=== PATIENT | male | born 2000 | race Two or more races ===

== ENCOUNTER 2021-04-21 17:07 | Emergency (ER) | payer OTHER, SELFPAY ==
[2021-04-21 17:08] VITALS: BP 115/67; PULSE 74; RESP 16; TEMP 37.1; O2SAT 99; BMI 19.3
--- NOTE | 2021-04-21 17:27 | HMH.EDGENADL ---
ED Disposition Clinical Impression: Laceration of right lower leg Qualifiers: Encounter type: initial encounter Qualified Code(s): S81.811A - Laceration without foreign body, right lower leg, initial encounter Disposition: Home, Self-Care Condition on Discharge: Good Instructions: DI for Laceration Repair Additional Instructions: Cephalexin as prescribed. Ibuprofen for pain. Additional instructions for LACERATION: Clean the wound daily with soap and water. You may shower. Apply a thin film of antibiotic ointment such as neosporin or triple antibiotic after showering and apply a bandage. Avoid submerging the wound, no swimming. See your primary care physician or return to the [facility] in 10 days for suture removal. The [facility] is open 9AM to 9 PM, 7 days a week. Return if any signs of infection including increasing pain, pus drainage, swelling, redness, red streaks, or fever. Prescriptions: cephALEXin [cephALEXin 500mg capsule*] 500 mg PO Q6H #20 cap Transmission Status: Pending to [id number] Referrals: Provider,Referral, [Primary Care Provider] - - Critical Care Critical Care Time: No Attestation: On , the high probability of a clinically significant, sudden or life threatening deterioration of the following system(s) required my full and direct attention, intervention and personal management. The time I documented below is in addition to time spent performing reported procedures but includes the following listed in this critical care notation. Medical Decision Making - Kayden Inquiry Pt receiving controlled substance: No Vital Signs: 04/21/21 17:08 Temperature 98.7 F Temperature Source Oral Pulse Rate [Left Radial] 74 Respiratory Rate 16 Blood Pressure [Right Arm] 115/67 Blood Pressure Mean [Right Arm] 83 Blood Pressure Source [Right Arm] Automatic Cuff 02 Sat by Pulse Oximetry 99 Oxygen Delivery Method Room Air Orders (Tests/Meds): ED MEDICATIONS Discontinued Medications Generic Name Dose Route Start Last Admin Trade Name Freq PRN Reason Stop Dose Admin Cephalexin HCl 500 mg 04/21/21 17:51 Cephalexin 500mg Capsule PO 04/21/21 17:52 ONCE ONE Ibuprofen 800 mg 04/21/21 17:33 04/21/21 17:43 Ibuprofen 400 Mg Tablet PO 04/21/21 17:34 800 mg ONCE ONE Administration Lidocaine/Epinephrine 10 ml 04/21/21 17:31 04/21/21 17:43 Lidocaine 2% W/Epi 1:100,000 20ml Vial IJ 04/21/21 17:32 1 dose ONCE ONE Administration Tetanus/Reduced Diphtheria/Acell Pertussis 0.5 ml 04/21/21 17:28 04/21/21 17:42 Tet/Diphth/Pert-Adult 0.5ml Syringe IM 04/21/21 17:29 0.5 ml .ONCE ONE Administration General Adult HPI - General Chief complaint: Wound/Laceration Stated complaint: [id number] lac to right leg Time Seen by Provider: 04/21/21 17:27 Mode of Arrival: Wheelchair Limitations: No Limitations Description of Symptoms (Recalled from ER Triage Doc. by RN): laceration on right vences with a tobacco knife about 30 minutes ago - History of Present Illness HPI narrative: Patient does not speak [place]. His employer is present and translates. He accidentally hit himself with a tobacco knife right vences. Employer says he hit himself with the corner of the knife, did not stab himself. He had on lung cancer at that time. He has a laceration. No numbness or weakness. - Related Data Previous Rx's Medication Instructions Recorded cephALEXin [cephALEXin 500mg 500 mg PO Q6H #20 cap 04/21/21 capsule*] Allergies Allergy/AdvReac Type Severity Reaction Status Date / Time No Known Allergies Allergy Verified 04/21/21 17:23 [facility] History - Hepatitis A Screen Drug use history?: No High risk sexual behaviors?: No History of sexually transmitted infection?: No Currently employed?: No Childcare worker?: No Do you have indoor plumbing?: Yes Do you have electricity?: Yes Attestation statement:: Thi
[2021-04-21 18:22] VITALS: BP 132/74; PULSE 91; RESP 18; TEMP 36.6; O2SAT 97
== END 2021-04-21 18:25 | disposition home or self-care (01) ==
PROVIDERS: Emergency Provider Emergency Medicine
DX: S81.811A Laceration without foreign body, right lower leg, initial encounter (principal); W26.0XXA Contact with knife, initial encounter; Y92.73 Farm field as the place of occurrence of the external cause; Z23 Encounter for immunization
CPT/HCPCS: 12001; 90471; 90715; 99282

== ENCOUNTER 2024-06-15 14:24 | Emergency (ER) | payer SELFPAY ==
[2024-06-15 14:30] VITALS: BP 131/82; PULSE 76; RESP 19; TEMP 36.4; O2SAT 98; BMI 23.1
--- NOTE | 2024-06-15 14:35 | EXP.UTC ---
Discharge Plan Disposition Patient Disposition: Home, Self-Care Condition: Good Prescriptions Prescriptions: New cephalexin 500 mg capsule 500 mg PO QID 10 Days Qty: 40 0RF mupirocin 2 % ointment 1 applic topical TID 7 Days Qty: 15 0RF Referrals Follow up/Referrals: Provider,Referral, MD [Primary Care Provider] - See instructions Activity Restrictions/Add. Instructions Additional Instructions/Restrictions: Keep the wound clean and dry. Watch the wound for signs of infection, such as redness, swelling, drainage, fever. etc. Take the antibiotics and apply the topical medication as directed. Take tylenol or ibuprofen for pain. Follow up with your regular doctor. GO TO THE ER FOR ANY WORSENING SYMPTOMS OR CONCERNS. 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 He has a laceration on the top of that 5th toe. It has been more than 24 hours since his injury. His tetanus immunization is up to date. Related Data Previous Rx's ?Medication ?Instructions ?Recorded cephalexin 500 mg capsule 500 mg PO QID 10 days #40 caps 06/15/24 mupirocin 2 % topical ointment 1 applic topical TID 7 days #15 06/15/24 grams Allergies Allergy/AdvReac Type Severity Reaction Status Date / Time No Known Allergies Allergy Verified 04/21/21 17:23 [facility] Disclaimer: The information contained in this section may have been updated after the patient was seen, as this information can be updated by other users. Social History Smoking Status: Never smoker alcohol intake: never current occupational status: employed Travel in the last 8 weeks: None ROS Obtained: Yes All systems reviewed & no additional complaints except as documented Constitutional Constitutional: Denies chills and Denies fever(s) Eyes Eyes: Denies eye discharge ENT Ears, Nose, Mouth, and Throat: Denies dizziness, Denies otalgia and Denies sore throat Cardiovascular Cardiovascular: Denies chest pain Respiratory Respiratory: Denies shortness of breath, Denies chest congestion, Denies cough, Denies stridor and Denies wheezing Gastrointestinal Gastrointestingal: Denies nausea or vomiting Musculoskeletal Musculoskeletal: Reports system reviewed and no additional complaints, except as documented and Denies arthralgias Integumentary/Breasts Skin/Breast: Denies rash Neurologic Neurologic: Denies dizziness and Denies paresthesias Allergic/Immunologic Allergic/Immunologic: Denies wheezing Physical Exam General General appearance: alert and in no apparent distress Head Head exam: atraumatic, normocephalic and normal inspection Eye Eye exam: Present normal appearance, PERRL and EOMI ENT ENT exam: Present normal exam, normal oropharynx, mucous membranes moist, TM's normal bilaterally and normal external ear exam Neck Neck exam: Present normal inspection, full ROM and trachea midline; Absent meningismus or lymphadenopathy Chest Chest inspection: Present normal inspection and symmetric chest wall rise; Absent tenderness Respiratory Respiratory exam: Present normal lung sounds bilaterally; Absent respiratory distress Cardiovascular Cardiovascular exam: Present regular rate and normal rhythm; Absent JVD Abdominal Exam Abdominal exam: Present soft and normal bowel sounds; Absent distention, tenderness or guarding Extremities Exam Extremities exam: Present normal inspection, full ROM and normal capillary refill; Absent calf tenderness Back Exam Back exam: Present normal inspection; Absent tenderness Neurological Exam Neurological exam: Present alert and oriented X3 Psychiatric Psychiatric exam: Present normal affect and normal mood Skin Skin exam: Present other (there is a 2 cm linear laceration on the top of his left 5th toe. no foreign body, no tendon or deep tissue damage. ) Lymphatic Lymphatic Findings: no adenopathy Medical Decision Making Medical Records Medical records reviewed: No I reviewed the patient's medical records. Screening: Per USPSTF and CDC recommendations, given the prevalence of disease in our region, it is our hospital?s policy to screen for HIV and viral Hepatitis for all patients aged 18 and over and those with ongoing risk factors. Kayden Inquiry Pt receiving controlled substance: No Medical Decision Narrative: It has been longer than 24 hours since this injury. I elected not to suture it. It was cleaned very well and steri strips were applied.
--- NOTE | 2024-06-15 15:10 | PC.NURSE ---
PATIENT'S LEFT 5TH TOE CLEANSED WITH HIBICLENSE AND STERILE WATER. STERI-STRIPS AND DRY NON-STICK DRESSING APPLIED
[2024-06-15 15:19] VITALS: BP 131/82; PULSE 76; RESP 19; TEMP 36.4; O2SAT 98
== END 2024-06-15 15:23 | disposition home or self-care (01) ==
PROVIDERS: Emergency Provider Nurse Practitioner Family
DX: S91.312A Laceration without foreign body, left foot, initial encounter (principal); W26.8XXA Contact with other sharp object(s), not elsewhere classified, initial encounter
CPT/HCPCS: 99213; G0381